=== PATIENT | female | born 1995 | race Caucasian/White ===

== ENCOUNTER 2019-04-09 10:35 | Emergency (ER) | payer BC ==
[~2019-04-09] VITALS: Ht 175.3 cm; Wt 145.5 kg
[~2019-04-09 10:35] MED LIST: VYVANSE70 MG PO
[2019-04-09 11:30] LABS: HEMATOCRIT 43.1 % (37.0-47.0); HEMOGLOBIN 14.2 g/dl (12.5-16.0); MEAN CELL VOLUME 88 fl (80.0-100.0); MEAN CORPUSCULAR HEMOGLOBIN 29 pg (27.0-31.0); MEAN CORPUSCULAR HGB CONC 33 g/dl (33.0-37.0); MEAN PLATELET VOLUME 10.2 fl (7.4-10.4); PLATELET COUNT 216 K/mm3 (130-400); RED BLOOD COUNT 4.88 M/mm3 (4.10-5.30); REDCELL DISTRIBUTION WIDTH-CV 13.3 % (11.5-14.5)
[2019-04-09 11:42] LABS: ALBUMIN 4.6 gm/dL (3.5-5.0); BILIRUBIN,TOTAL 0.9 mg/dL (0.0-1.0); C-REACTIVE PROTEIN 2.2 mg/dL (0.0-0.9); CALCIUM 9.1 mg/dL (8.4-10.2); CREATININE, serum 0.74 (0.52-1.25); POTASSIUM 3.6 mmol/L (3.4-5.0); TOTAL PROTEIN 8.2 gm/dL (6.4-8.2)
[2019-04-09 12:00] LABS: BAND 2 % (0-10); LYMPHOCYTE 4 % (20.0-51.0); NEUTROPHILS 92 % (42.0-75.2)
[2019-04-09 12:01] LABS: PLATELET ESTIMATE NORMAL (NORMAL)
[2019-04-09 12:26] LABS: COLLECTION METHOD CLEAN CATCH
[2019-04-09 13:21] VITALS: TEMP 98.1
[2019-04-09 13:24] LABS: MUCOUS Present /lpf; PH 5 (5-8); URINE APPEARANCE Turbid; URINE BACTERIA Rare /hpf; URINE BILIRUBIN Negative (NEGATIVE); URINE BLOOD Negative (NEGATIVE); URINE COLOR Amber; URINE GLUCOSE Negative (NEGATIVE); URINE KETONE Negative (NEGATIVE); URINE LEUKOCYTE ESTERASE Negative (NEGATIVE); URINE NITRATE Negative (NEGATIVE); URINE PROTEIN(semi-quant) Negative (NEGATIVE); URINE RBC None Seen /hpf; URINE UROBILINOGEN Negative (NEGATIVE)
[2019-04-09] MEDS ORDERED: ZOFRAN ODT4 MG PO (14:59)
[2019-04-09 15:20] VITALS: BP 119/60; PULSE 92
== END 2019-04-10 15:20 | disposition home or self-care (01) ==
LOC: COL.ER 10:35
PROVIDERS: Physician Assistant
DX: A08.11 Acute gastroenteropathy due to Norwalk agent (principal)
CPT/HCPCS: J7030

== ENCOUNTER 2019-06-21 16:43 | Emergency (ER) | payer BC, MEDICAID ==
[~2019-06-21] VITALS: Ht 175.3 cm; Wt 134.1 kg
[~2019-06-21 16:43] MED LIST changes: +ZOFRAN ODT4 MG PO
[2019-06-21 16:57] VITALS: BP 123/67; TEMP 97.9
[2019-06-21 17:59] LABS: COLLECTION METHOD CLEAN CATCH
[2019-06-21 18:10] LABS: MUCOUS Present /lpf; PH 5 (5-8); URINE APPEARANCE Hazy; URINE BACTERIA Rare /hpf; URINE BILIRUBIN Negative (NEGATIVE); URINE BLOOD Negative (NEGATIVE); URINE CALCIUM OXALATE CRYSTAL Present /hpf; URINE COLOR Yellow; URINE GLUCOSE Negative (NEGATIVE); URINE KETONE Negative (NEGATIVE); URINE LEUKOCYTE ESTERASE Negative (NEGATIVE); URINE NITRATE Negative (NEGATIVE); URINE PROTEIN(semi-quant) Negative (NEGATIVE); URINE UROBILINOGEN Negative (NEGATIVE)
[2019-06-21] MEDS ORDERED: MACROBID 1100 MG/CAP PO (19:28)
[2019-06-21] MEDS ORDERED: FLAGYL500 MG PO (19:28)
[2019-06-21] MEDS ORDERED: PRENATAL TABLET PO (19:44)
[2019-06-21 19:52] VITALS: PULSE 90
== END 2019-06-21 19:52 | disposition home or self-care (01) ==
LOC: COL.ER 16:43
PROVIDERS: Nurse Practitioner
DX: O23.592 Infection of other part of genital tract in pregnancy, second trimester (principal); O23.42 Unspecified infection of urinary tract in pregnancy, second trimester; Z88.0 Allergy status to penicillin; Z3A.15 15 weeks gestation of pregnancy

== ENCOUNTER 2019-07-11 21:11 | Emergency (ER) | payer BC, MEDICAID ==
[~2019-07-11] VITALS: Ht 175.3 cm; Wt 134.1 kg
[~2019-07-11 21:11] MED LIST changes: +FLAGYL500 MG PO; +MACROBID 1100 MG/CAP PO; +PRENATAL TABLET PO
[2019-07-11 21:30] VITALS: BP 117/62
[2019-07-11 22:23] LABS: BASO % 0.3 % (0.0-2.0); EOS # 0.1 (0.0-0.7); EOS % 1.4 % (0-4.0); GRAN # 4.3 (1.4-6.5); GRAN % 73.2 % (42.2-75.2); HEMATOCRIT 37.5 % (37.0-47.0); HEMOGLOBIN 12.6 g/dl (12.5-16.0); LYMPH # 0.9 (1.2-3.4); LYMPH % 15.4 % (20.0-51.0); MEAN CELL VOLUME 90 fl (80.0-100.0); MEAN CORPUSCULAR HEMOGLOBIN 30 pg (27.0-31.0); MEAN CORPUSCULAR HGB CONC 34 g/dl (33.0-37.0); MEAN PLATELET VOLUME 10.5 fl (7.4-10.4); MONO # 0.6 (0.1-0.6); MONO % 9.4 % (1.7-9.3); PLATELET COUNT 178 K/mm3 (130-400); RED BLOOD COUNT 4.18 M/mm3 (4.10-5.30); REDCELL DISTRIBUTION WIDTH-CV 13.3 % (11.5-14.5)
[2019-07-11 22:30] LABS: BILIRUBIN,TOTAL 0.4 mg/dL (0.0-1.0); CALCIUM 9.3 mg/dL (8.4-10.2); CREATININE, serum 0.52 (0.52-1.25); POTASSIUM 3.7 mmol/L (3.4-5.0); TOTAL PROTEIN 7.4 gm/dL (6.4-8.2)
[2019-07-11] MEDS ORDERED: TAMIFLU 75MG75 MG PO (23:11)
[2019-07-11 23:56] VITALS: PULSE 103; TEMP 98.3
== END 2019-07-11 23:50 | disposition home or self-care (01) ==
LOC: COL.ER 21:11
PROVIDERS: Emergency Medicine
DX: O98.512 Other viral diseases complicating pregnancy, second trimester (principal); J10.1 Influenza due to other identified influenza virus with other respiratory manifestations; Z3A.18 18 weeks gestation of pregnancy
CPT/HCPCS: J1200; J7030